=== PATIENT | male | born 1975 | race Two or more races ===

== ENCOUNTER 2021-06-14 21:23 | Emergency (ER) | payer SELFPAY ==
[~2021-06-14] VITALS: Ht 160 cm; Wt 77.1 kg
[2021-06-14 21:33] VITALS: BP 143/104
== END 2021-06-15 03:04 | disposition left against medical advice (07) ==
LOC: ER 21:23
DX: R51.9 Headache, unspecified (principal); I10 Essential (primary) hypertension; Z53.21 Procedure and treatment not carried out due to patient leaving prior to being seen by health care provider

== ENCOUNTER 2021-06-16 16:27 | Inpatient (IN) | payer OTHER ==
[~2021-06-16] VITALS: Ht 160 cm; Wt 94.6 kg
[2021-06-16] MEDS ORDERED: CHOLECALCIFEROL (VITD3) 2,000 UNIT CAP/TAB PO ONE (18:30)
[2021-06-16] MEDS ORDERED: ZINC SULFATE 220mg CAP or TAB PO ONE (18:30)
[2021-06-16] MEDS ORDERED: methylPREDNISolone SOD SUCC 125 MG/2 ML VL IV ONE (18:30)
[2021-06-16] MEDS ORDERED: ASCORBIC ACID 500 MG TAB PO ONE (18:30)
[2021-06-16] MEDS ORDERED: AZITHROMYCIN 500MG/ 250ML 250 ML IV ONE (18:30)
[2021-06-16 19:25] LABS: Basophils # (auto) 0 10 ^3/uL (0-0.2); Basophils % (auto) 0.3 % (0.0-2.0); Eosinophils # (auto) 0 10 ^3/uL (0-0.8); Lymphocytes # (auto) 0.5 10 ^3/uL (0.4-5.4); Mean Corpuscular Hemoglobin 26.9 pg (28.0-32.0); Monocytes # (auto) 0.3 10 ^3/uL (0-1.3); Neutrophils # (auto) 6.8 10 ^3/uL (1.6-8.6); Nucleated Red Blood Cells % 0.1 %
[2021-06-16 19:26] LABS: Hematocrit 54.5 % (41.0-53.0); Hemoglobin 17.7 g/dL (13.5-17.5); Lymphocytes % (auto) 6.6 % (10.0-50.0); Mean Corpuscular Hgb Conc. 32.4 g/dL (32.0-36.0); Monocytes % (auto) 4.1 % (0.0-12.0); Red Blood Cells 6.56 10^6/uL (4.5-5.90); Red Cell Distribution Width 13.8 % (11.8-14.3); White Blood Cell 7.7 10^3/uL (4.4-10.8)
[2021-06-16 19:37] LABS: Albumin 3.2 g/dL (3.4-5.0); Calcium 9.1 mg/dL (8.5-10.1); Magnesium 2.7 mg/dL (1.6-2.6); Potassium 4.5 mmol/L (3.5-5.1)
[2021-06-16 19:40] LABS: BUN/Creatinine Ratio 21.9; Bilirubin, Total 0.5 mg/dL (0.2-1.0); Total Protein 8.2 g/dL (6.4-8.2)
[2021-06-16] MEDS ORDERED: NITROGLYCERIN 0.4 MG SL TAB SL PRN (21:15)
[2021-06-16] MEDS ORDERED: REMDESIVIR PER PHARMACY 0 ML IV SCH (21:15)
[2021-06-16] MEDS ORDERED: ONDANSETRON HCL 4 MG/2 ML VIAL IV PRN (21:15)
[2021-06-16] MEDS ORDERED: cloNIDine HCL 0.1 MG TAB PO PRN (21:15)
[2021-06-16] MEDS ORDERED: MORPHINE SULFATE INJECTION 2 MG/ML SYRG IV PRN (21:15)
[2021-06-16] MEDS: ENOXAPARIN SOD 40 MG/0.4 ML SYRINGE SC SCH (22:01)
[2021-06-17 00:42] VITALS: BP 146/98
[2021-06-17 07:15] LABS: Basophils # (auto) 0 10 ^3/uL (0-0.2); Eosinophils # (auto) 0 10 ^3/uL (0-0.8); Hematocrit 50.3 % (41.0-53.0); Hemoglobin 16.5 g/dL (13.5-17.5); Mean Corpuscular Hemoglobin 27.1 pg (28.0-32.0); Mean Corpuscular Hgb Conc. 32.8 g/dL (32.0-36.0); Mean Corpuscular Volume 82.7 fL (80.0-100.0); Nucleated Red Blood Cells % 0.1 %; Red Blood Cells 6.08 10^6/uL (4.5-5.90)
[2021-06-17 07:16] LABS: Basophils % (auto) 0.3 % (0.0-2.0); Lymphocytes # (auto) 0.3 10 ^3/uL (0.4-5.4); Lymphocytes % (auto) 5.9 % (10.0-50.0); Monocytes # (auto) 0.1 10 ^3/uL (0-1.3); Monocytes % (auto) 2.7 % (0.0-12.0); Neutrophils # (auto) 4.8 10 ^3/uL (1.6-8.6); Neutrophils % (auto) 91.1 % (37.0-80.0); Red Cell Distribution Width 13.9 % (11.8-14.3); White Blood Cell 5.3 10^3/uL (4.4-10.8)
[2021-06-17 07:24] LABS: Potassium 4.2 mmol/L (3.5-5.1)
[2021-06-17 07:31] LABS: Albumin 2.7 g/dL (3.4-5.0); BUN/Creatinine Ratio 31.9; Bilirubin, Total 0.3 mg/dL (0.2-1.0); Calcium 8.5 mg/dL (8.5-10.1); Magnesium 2.5 mg/dL (1.6-2.6); Total Protein 7.4 g/dL (6.4-8.2)
[2021-06-17] MEDS: ENOXAPARIN SOD 40 MG/0.4 ML SYRINGE SC SCH ×2 (10:00→21:02)
[2021-06-17] MEDS: DexAMETHasone SOD PHOS 10MG/1ML VIAL INJ IV SCH (10:16)
[2021-06-17] MEDS: ZINC SULFATE 220mg CAP or TAB PO SCH (10:16)
[2021-06-17] MEDS: PANTOPRAZOLE 40 MG TAB PO SCH (10:16)
[2021-06-17] MEDS: ASCORBIC ACID 1,000 MG TAB PO SCH (10:16)
[2021-06-17] MEDS: CHOLECALCIFEROL (VITD3) 2,000 UNIT CAP/TAB PO SCH (10:17)
[2021-06-17] MEDS: LISINOPRIL 20 MG TAB PO SCH (11:27)
[2021-06-17] MEDS: AZITHROMYCIN 500MG/ 250ML 250 ML IV SCH (11:27)
[2021-06-17] MEDS: ALBUTEROL SULF HFA 90MCG INH 200DOSE IN PRN ×2 (11:27→20:48)
[2021-06-17] MEDS ORDERED: FUROSEMIDE 40 MG/4 ML VIAL IV ONE (12:45)
[2021-06-17] MEDS: guaiFENesin-DM 100/10mg/5ml SYR PO PRN ×2 (13:35→21:02)
[2021-06-17] MEDS ORDERED: REMDESIVIR 200 MG in NS 210ml LOADING DOSE ADULT IV ONE (15:00)
[2021-06-17 16:22] VITALS: BP 131/90
[2021-06-17 16:45] VITALS: BP 131/91
[2021-06-17] MEDS ORDERED: LISI40TA11 PO (19:26)
[2021-06-17 22:00] VITALS: BP 141/90
[2021-06-18] MEDS: guaiFENesin-DM 100/10mg/5ml SYR PO PRN ×3 (01:22→23:15)
[2021-06-18 05:00] VITALS: BP 139/89
[2021-06-18] MEDS: ALBUTEROL SULF HFA 90MCG INH 200DOSE IN PRN ×2 (07:09→21:41)
[2021-06-18 07:25] LABS: Albumin 2.4 g/dL (3.4-5.0); Calcium 8.6 mg/dL (8.5-10.1); Potassium 4.6 mmol/L (3.5-5.1)
[2021-06-18 07:29] LABS: BUN/Creatinine Ratio 36.8; Bilirubin, Total 0.3 mg/dL (0.2-1.0); Total Protein 7.1 g/dL (6.4-8.2)
[2021-06-18 09:00] VITALS: BP 138/90
[2021-06-18] MEDS: AZITHROMYCIN 500MG/ 250ML 250 ML IV SCH ×2 (10:00→18:18)
[2021-06-18] MEDS: DexAMETHasone SOD PHOS 10MG/1ML VIAL INJ IV SCH (10:07)
[2021-06-18] MEDS: LISINOPRIL 20 MG TAB PO SCH (10:08)
[2021-06-18] MEDS: ZINC SULFATE 220mg CAP or TAB PO SCH (10:08)
[2021-06-18] MEDS: CHOLECALCIFEROL (VITD3) 2,000 UNIT CAP/TAB PO SCH (10:08)
[2021-06-18] MEDS: PANTOPRAZOLE 40 MG TAB PO SCH (10:08)
[2021-06-18] MEDS: ASCORBIC ACID 1,000 MG TAB PO SCH (10:08)
[2021-06-18] MEDS: FUROSEMIDE 40 MG/4 ML VIAL IV SCH (10:08)
[2021-06-18] MEDS: ENOXAPARIN SOD 40 MG/0.4 ML SYRINGE SC SCH ×2 (10:09→20:57)
[2021-06-18 13:30] VITALS: BP 118/73
[2021-06-18] MEDS ORDERED: IOHEXOL 350 MG/ML 100ML IJ ONE (14:57)
[2021-06-18] MEDS: REMDESIVIR 100mg 100 MG in SODIUM CHL 0.9% 230 ML IV SCH (16:23)
[2021-06-18 16:31] VITALS: BP 120/73
[2021-06-18 22:00] VITALS: BP 125/84
[2021-06-18] MEDS ORDERED: TOCILIZUMAB 400 MG in SODIUM CHL 0.9% 80 ML IV SCH (22:00)
[2021-06-19] VITALS (8 sets, daily range): BP systolic 127–138; BP diastolic 69–94
[2021-06-19] MEDS: guaiFENesin-DM 100/10mg/5ml SYR PO PRN ×2 (03:33→20:56)
[2021-06-19] MEDS: ACETAMINOPHEN 500 MG TAB PO PRN ×2 (03:37→22:39)
[2021-06-19] MEDS: ALBUTEROL SULF HFA 90MCG INH 200DOSE IN PRN ×2 (07:36→19:01)
[2021-06-19 08:01] LABS: Albumin 2.3 g/dL (3.4-5.0); Calcium 7.8 mg/dL (8.5-10.1); Potassium 4.3 mmol/L (3.5-5.1)
[2021-06-19 08:10] LABS: BUN/Creatinine Ratio 54.9; Bilirubin, Total 0.4 mg/dL (0.2-1.0); Total Protein 5.9 g/dL (6.4-8.2)
[2021-06-19] MEDS: FUROSEMIDE 40 MG/4 ML VIAL IV SCH (10:38)
[2021-06-19] MEDS: DexAMETHasone SOD PHOS 10MG/1ML VIAL INJ IV SCH (10:38)
[2021-06-19] MEDS: ASCORBIC ACID 1,000 MG TAB PO SCH (10:39)
[2021-06-19] MEDS: PANTOPRAZOLE 40 MG TAB PO SCH (10:39)
[2021-06-19] MEDS: ZINC SULFATE 220mg CAP or TAB PO SCH (10:39)
[2021-06-19] MEDS: CHOLECALCIFEROL (VITD3) 2,000 UNIT CAP/TAB PO SCH (10:40)
[2021-06-19] MEDS: ENOXAPARIN SOD 40 MG/0.4 ML SYRINGE SC SCH ×2 (10:40→20:55)
[2021-06-19] MEDS: LISINOPRIL 20 MG TAB PO SCH (10:43)
[2021-06-19] MEDS ORDERED: LACTULOSE 20Gm/30ML SOLN PO ONE (11:45)
[2021-06-19] MEDS ORDERED: LACTULOSE 20Gm/30ML SOLN PO PRN (11:45)
[2021-06-19] MEDS ORDERED: CEFTRIAXONE SODIUM 2 GM in D5W 5% 50 ML IV ONE (11:45)
[2021-06-19] MEDS: CEFTRIAXONE SODIUM 2 GM in D5W 5% 50 ML IV ONE ×2 (14:53→16:45)
[2021-06-19] MEDS: REMDESIVIR 100mg 100 MG in SODIUM CHL 0.9% 230 ML IV SCH (15:10)
[2021-06-20] MEDS: guaiFENesin-DM 100/10mg/5ml SYR PO PRN ×2 (03:13→18:20)
[2021-06-20 05:19] VITALS: BP 113/75
[2021-06-20] MEDS: ALBUTEROL SULF HFA 90MCG INH 200DOSE IN PRN ×2 (07:19→23:07)
[2021-06-20 07:32] LABS: Basophils # (auto) 0 10 ^3/uL (0-0.2); Basophils % (auto) 0.3 % (0.0-2.0); Eosinophils # (auto) 0 10 ^3/uL (0-0.8); Lymphocytes % (auto) 5.4 % (10.0-50.0); Monocytes # (auto) 0.6 10 ^3/uL (0-1.3); Neutrophils # (auto) 7.2 10 ^3/uL (1.6-8.6); Nucleated Red Blood Cells % 0.1 %; Red Blood Cells 5.86 10^6/uL (4.5-5.90); White Blood Cell 8.3 10^3/uL (4.4-10.8)
[2021-06-20 07:35] LABS: Hematocrit 47.5 % (41.0-53.0); Hemoglobin 15.8 g/dL (13.5-17.5); Lymphocytes # (auto) 0.4 10 ^3/uL (0.4-5.4); Mean Corpuscular Hemoglobin 26.9 pg (28.0-32.0); Mean Corpuscular Hgb Conc. 33.3 g/dL (32.0-36.0); Mean Corpuscular Volume 80.9 fL (80.0-100.0); Monocytes % (auto) 7.4 % (0.0-12.0); Neutrophils % (auto) 86.9 % (37.0-80.0); Red Cell Distribution Width 13.4 % (11.8-14.3)
[2021-06-20 07:55] LABS: Albumin 2.3 g/dL (3.4-5.0); BUN/Creatinine Ratio 42.6; Calcium 7.9 mg/dL (8.5-10.1); Potassium 4.5 mmol/L (3.5-5.1)
[2021-06-20 08:03] LABS: Bilirubin, Total 0.4 mg/dL (0.2-1.0); CRP High Sensitivity 1.28 mg/dL (< 0.3); Total Protein 5.9 g/dL (6.4-8.2)
[2021-06-20 09:00] VITALS: BP 134/83
[2021-06-20] MEDS ORDERED: CEFTRIAXONE SODIUM 2 GM in D5W 5% 50 ML IV SCH (09:00)
[2021-06-20] MEDS ORDERED: CEFTRIAXONE SODIUM 1 GM in D5W 5% 50 ML IV SCH (09:00)
[2021-06-20] MEDS: AZITHROMYCIN 500MG/ 250ML 250 ML IV SCH (09:47)
[2021-06-20] MEDS: DexAMETHasone SOD PHOS 10MG/1ML VIAL INJ IV SCH (09:48)
[2021-06-20] MEDS: LISINOPRIL 20 MG TAB PO SCH (09:48)
[2021-06-20] MEDS: FUROSEMIDE 40 MG/4 ML VIAL IV SCH (09:48)
[2021-06-20] MEDS: PANTOPRAZOLE 40 MG TAB PO SCH (09:49)
[2021-06-20] MEDS: ENOXAPARIN SOD 40 MG/0.4 ML SYRINGE SC SCH ×2 (09:49→21:34)
[2021-06-20] MEDS: CHOLECALCIFEROL (VITD3) 2,000 UNIT CAP/TAB PO SCH (09:49)
[2021-06-20] MEDS: ZINC SULFATE 220mg CAP or TAB PO SCH (09:49)
[2021-06-20] MEDS: ASCORBIC ACID 1,000 MG TAB PO SCH (09:49)
[2021-06-20] MEDS: CEFTRIAXONE SODIUM 2 GM in D5W 5% 50 ML IV SCH (09:52)
[2021-06-20] MEDS: IVERMECTIN 3 MG TAB PO SCH (11:43)
[2021-06-20 13:00] VITALS: BP 109/66
[2021-06-20] MEDS: REMDESIVIR 100mg 100 MG in SODIUM CHL 0.9% 230 ML IV SCH (14:51)
[2021-06-20 16:41] VITALS: BP 133/90
[2021-06-20 22:09] VITALS: BP 115/73
[2021-06-21 06:12] VITALS: BP 129/92
[2021-06-21 06:59] LABS: Albumin 2.5 g/dL (3.4-5.0); Calcium 8.2 mg/dL (8.5-10.1); Potassium 4.3 mmol/L (3.5-5.1)
[2021-06-21 07:23] LABS: BUN/Creatinine Ratio 35.4; Bilirubin, Total 0.4 mg/dL (0.2-1.0); Total Protein 6.1 g/dL (6.4-8.2)
[2021-06-21 08:43] VITALS: BP 97/59
[2021-06-21] MEDS: DexAMETHasone SOD PHOS 10MG/1ML VIAL INJ IV SCH (08:52)
[2021-06-21] MEDS: ENOXAPARIN SOD 40 MG/0.4 ML SYRINGE SC SCH ×2 (08:53→21:07)
[2021-06-21] MEDS: CHOLECALCIFEROL (VITD3) 2,000 UNIT CAP/TAB PO SCH (08:54)
[2021-06-21] MEDS: IVERMECTIN 3 MG TAB PO SCH (08:54)
[2021-06-21] MEDS: PANTOPRAZOLE 40 MG TAB PO SCH (08:54)
[2021-06-21] MEDS: ZINC SULFATE 220mg CAP or TAB PO SCH (08:54)
[2021-06-21] MEDS: ASCORBIC ACID 1,000 MG TAB PO SCH (08:54)
[2021-06-21] MEDS: LISINOPRIL 20 MG TAB PO SCH (09:04)
[2021-06-21] MEDS: FUROSEMIDE 40 MG/4 ML VIAL IV SCH (09:04)
[2021-06-21] MEDS: CEFTRIAXONE SODIUM 2 GM in D5W 5% 50 ML IV SCH (09:21)
[2021-06-21] MEDS: ALBUTEROL SULF HFA 90MCG INH 200DOSE IN PRN ×2 (09:56→21:01)
[2021-06-21 13:00] VITALS: BP 111/82
[2021-06-21] MEDS: REMDESIVIR 100mg 100 MG in SODIUM CHL 0.9% 230 ML IV SCH (15:31)
[2021-06-21 16:47] VITALS: BP 126/79
[2021-06-21 22:00] VITALS: BP 132/88
[2021-06-22 05:00] VITALS: BP 131/87
[2021-06-22 06:56] LABS: Potassium 4.4 mmol/L (3.5-5.1)
[2021-06-22 07:01] LABS: BUN/Creatinine Ratio 43.6; Calcium 8.3 mg/dL (8.5-10.1)
[2021-06-22 08:00] VITALS: BP 130/80
[2021-06-22] MEDS: FUROSEMIDE 40 MG/4 ML VIAL IV SCH (09:07)
[2021-06-22] MEDS: DexAMETHasone SOD PHOS 10MG/1ML VIAL INJ IV SCH (09:07)
[2021-06-22] MEDS: ZINC SULFATE 220mg CAP or TAB PO SCH (09:08)
[2021-06-22] MEDS: CEFTRIAXONE SODIUM 2 GM in D5W 5% 50 ML IV SCH (09:08)
[2021-06-22] MEDS: PANTOPRAZOLE 40 MG TAB PO SCH (09:08)
[2021-06-22] MEDS: IVERMECTIN 3 MG TAB PO SCH (09:09)
[2021-06-22] MEDS: CHOLECALCIFEROL (VITD3) 2,000 UNIT CAP/TAB PO SCH (09:09)
[2021-06-22] MEDS: LISINOPRIL 20 MG TAB PO SCH (09:09)
[2021-06-22] MEDS: ASCORBIC ACID 1,000 MG TAB PO SCH (09:09)
[2021-06-22] MEDS: ENOXAPARIN SOD 40 MG/0.4 ML SYRINGE SC SCH ×2 (09:10→21:28)
[2021-06-22 09:14] VITALS: BP 130/80
[2021-06-22 13:00] VITALS: BP 143/81
[2021-06-22] MEDS: ALBUTEROL SULF HFA 90MCG INH 200DOSE IN PRN ×2 (14:58→21:57)
[2021-06-22 17:00] VITALS: BP 122/88
[2021-06-22 22:00] VITALS: BP 118/75
[2021-06-23] VITALS (7 sets, daily range): BP systolic 111–131; BP diastolic 61–75
[2021-06-23] MEDS: ACETAMINOPHEN 500 MG TAB PO PRN (03:40)
[2021-06-23] MEDS: ALBUTEROL SULF HFA 90MCG INH 200DOSE IN PRN ×2 (06:48→19:06)
[2021-06-23] MEDS: DexAMETHasone SOD PHOS 10MG/1ML VIAL INJ IV SCH (08:18)
[2021-06-23] MEDS: CEFTRIAXONE SODIUM 2 GM in D5W 5% 50 ML IV SCH (08:18)
[2021-06-23] MEDS: PANTOPRAZOLE 40 MG TAB PO SCH (08:19)
[2021-06-23] MEDS: ZINC SULFATE 220mg CAP or TAB PO SCH (08:19)
[2021-06-23] MEDS: IVERMECTIN 3 MG TAB PO SCH (08:19)
[2021-06-23] MEDS: ASCORBIC ACID 1,000 MG TAB PO SCH (08:20)
[2021-06-23] MEDS: ENOXAPARIN SOD 40 MG/0.4 ML SYRINGE SC SCH ×2 (08:20→21:19)
[2021-06-23] MEDS: CHOLECALCIFEROL (VITD3) 2,000 UNIT CAP/TAB PO SCH (08:20)
[2021-06-23] MEDS: FUROSEMIDE 40 MG/4 ML VIAL IV SCH (08:25)
[2021-06-23] MEDS: LISINOPRIL 20 MG TAB PO SCH (08:25)
[2021-06-23] MEDS: guaiFENesin-DM 100/10mg/5ml SYR PO PRN (11:11)
[2021-06-24] MEDS: TEMAZEPAM 15 MG CAP PO PRN ×2 (01:09→21:57)
[2021-06-24 05:00] VITALS: BP 108/71
[2021-06-24] MEDS: ALBUTEROL SULF HFA 90MCG INH 200DOSE IN PRN ×2 (06:06→19:42)
[2021-06-24 07:01] LABS: Basophils # (auto) 0 10 ^3/uL (0-0.2); Basophils % (auto) 0.2 % (0.0-2.0); Eosinophils # (auto) 0 10 ^3/uL (0-0.8); Lymphocytes # (auto) 0.3 10 ^3/uL (0.4-5.4); Mean Corpuscular Hgb Conc. 33.3 g/dL (32.0-36.0); Monocytes # (auto) 0.5 10 ^3/uL (0-1.3)
[2021-06-24 07:06] LABS: Eosinophils % (auto) 0.1 % (0.0-7.0); Hematocrit 48.5 % (41.0-53.0); Hemoglobin 16.2 g/dL (13.5-17.5); Lymphocytes % (auto) 1.9 % (10.0-50.0); Mean Corpuscular Hemoglobin 27.3 pg (28.0-32.0); Mean Corpuscular Volume 81.8 fL (80.0-100.0); Monocytes % (auto) 3.3 % (0.0-12.0); Neutrophils # (auto) 15.3 10 ^3/uL (1.6-8.6); Neutrophils % (auto) 94.5 % (37.0-80.0); Red Blood Cells 5.93 10^6/uL (4.5-5.90); Red Cell Distribution Width 13.4 % (11.8-14.3); White Blood Cell 16.2 10^3/uL (4.4-10.8)
[2021-06-24 07:13] LABS: Albumin 2.3 g/dL (3.4-5.0); Calcium 8.6 mg/dL (8.5-10.1); Potassium 5.1 mmol/L (3.5-5.1)
[2021-06-24 07:24] LABS: Bilirubin, Total 0.5 mg/dL (0.2-1.0); CRP High Sensitivity 2.79 mg/dL (< 0.3); Total Protein 6.2 g/dL (6.4-8.2)
[2021-06-24] MEDS: DexAMETHasone SOD PHOS 10MG/1ML VIAL INJ IV SCH (08:23)
[2021-06-24] MEDS: FUROSEMIDE 40 MG/4 ML VIAL IV SCH (08:25)
[2021-06-24] MEDS: PANTOPRAZOLE 40 MG TAB PO SCH (08:25)
[2021-06-24] MEDS: ZINC SULFATE 220mg CAP or TAB PO SCH (08:25)
[2021-06-24] MEDS: IVERMECTIN 3 MG TAB PO SCH (08:26)
[2021-06-24] MEDS: CHOLECALCIFEROL (VITD3) 2,000 UNIT CAP/TAB PO SCH (08:26)
[2021-06-24] MEDS: ASCORBIC ACID 1,000 MG TAB PO SCH (08:26)
[2021-06-24] MEDS: ENOXAPARIN SOD 40 MG/0.4 ML SYRINGE SC SCH ×2 (08:28→20:03)
[2021-06-24] MEDS: LISINOPRIL 20 MG TAB PO SCH (08:29)
[2021-06-24] MEDS: CEFTRIAXONE SODIUM 2 GM in D5W 5% 50 ML IV SCH (08:38)
[2021-06-24 09:00] VITALS: BP 117/64
[2021-06-24 13:24] VITALS: BP 133/74
[2021-06-24 17:00] VITALS: BP 122/77
[2021-06-24] MEDS: guaiFENesin-DM 100/10mg/5ml SYR PO PRN (20:03)
[2021-06-24 22:00] VITALS: BP 111/60
[2021-06-25] MEDS: guaiFENesin-DM 100/10mg/5ml SYR PO PRN ×2 (00:07→20:13)
[2021-06-25 05:00] VITALS: BP 137/71
[2021-06-25] MEDS: ALBUTEROL SULF HFA 90MCG INH 200DOSE IN PRN (06:52)
[2021-06-25] MEDS: DexAMETHasone SOD PHOS 10MG/1ML VIAL INJ IV SCH (07:52)
[2021-06-25] MEDS: IVERMECTIN 3 MG TAB PO SCH (07:53)
[2021-06-25] MEDS: CEFTRIAXONE SODIUM 2 GM in D5W 5% 50 ML IV SCH (07:53)
[2021-06-25] MEDS: FUROSEMIDE 40 MG/4 ML VIAL IV SCH (07:53)
[2021-06-25] MEDS: ZINC SULFATE 220mg CAP or TAB PO SCH (07:53)
[2021-06-25] MEDS: ASCORBIC ACID 1,000 MG TAB PO SCH (07:54)
[2021-06-25] MEDS: CHOLECALCIFEROL (VITD3) 2,000 UNIT CAP/TAB PO SCH (07:54)
[2021-06-25] MEDS: ENOXAPARIN SOD 40 MG/0.4 ML SYRINGE SC SCH ×2 (07:55→20:13)
[2021-06-25] MEDS: LISINOPRIL 20 MG TAB PO SCH (07:55)
[2021-06-25] MEDS: PANTOPRAZOLE 40 MG TAB PO SCH (07:56)
[2021-06-25 09:00] VITALS: BP 124/77
[2021-06-25 12:39] VITALS: BP 110/69
[2021-06-25 17:00] VITALS: BP 112/66
[2021-06-25] MEDS: TEMAZEPAM 15 MG CAP PO PRN (21:25)
[2021-06-25 22:00] VITALS: BP 121/74
[2021-06-26] MEDS: guaiFENesin-DM 100/10mg/5ml SYR PO PRN ×2 (01:07→10:36)
[2021-06-26 05:00] VITALS: BP 120/85
[2021-06-26 06:26] LABS: BUN/Creatinine Ratio 39.7; Calcium 8.8 mg/dL (8.5-10.1); Potassium 5.2 mmol/L (3.5-5.1)
[2021-06-26 06:56] LABS: Basophils # (auto) 0 10 ^3/uL (0-0.2); Eosinophils # (auto) 0 10 ^3/uL (0-0.8); Eosinophils % (auto) 0.2 % (0.0-7.0); Lymphocytes # (auto) 0.3 10 ^3/uL (0.4-5.4); Mean Corpuscular Volume 81.5 fL (80.0-100.0); Monocytes # (auto) 0.4 10 ^3/uL (0-1.3)
[2021-06-26 06:59] LABS: Basophils % (auto) 0.1 % (0.0-2.0); Hematocrit 50.2 % (41.0-53.0); Hemoglobin 16.5 g/dL (13.5-17.5); Mean Corpuscular Hemoglobin 26.7 pg (28.0-32.0); Mean Corpuscular Hgb Conc. 32.8 g/dL (32.0-36.0); Monocytes % (auto) 2.4 % (0.0-12.0); Neutrophils # (auto) 15.8 10 ^3/uL (1.6-8.6); Neutrophils % (auto) 95.3 % (37.0-80.0); Red Blood Cells 6.16 10^6/uL (4.5-5.90); Red Cell Distribution Width 13.6 % (11.8-14.3); White Blood Cell 16.6 10^3/uL (4.4-10.8)
[2021-06-26 09:00] VITALS: BP 121/74
[2021-06-26] MEDS: CHOLECALCIFEROL (VITD3) 2,000 UNIT CAP/TAB PO SCH (09:05)
[2021-06-26] MEDS: PANTOPRAZOLE 40 MG TAB PO SCH (09:06)
[2021-06-26] MEDS: LISINOPRIL 20 MG TAB PO SCH (09:06)
[2021-06-26] MEDS: IVERMECTIN 3 MG TAB PO SCH (09:06)
[2021-06-26] MEDS: ASCORBIC ACID 1,000 MG TAB PO SCH (09:06)
[2021-06-26] MEDS: ZINC SULFATE 220mg CAP or TAB PO SCH (09:06)
[2021-06-26] MEDS: FUROSEMIDE 40 MG/4 ML VIAL IV SCH (09:07)
[2021-06-26] MEDS: ENOXAPARIN SOD 40 MG/0.4 ML SYRINGE SC SCH ×2 (09:07→21:53)
[2021-06-26] MEDS: DexAMETHasone SOD PHOS 10MG/1ML VIAL INJ IV SCH (09:07)
[2021-06-26] MEDS: CEFTRIAXONE SODIUM 2 GM in D5W 5% 50 ML IV SCH (10:35)
[2021-06-26 13:00] VITALS: BP 109/62
[2021-06-26 17:00] VITALS: BP 117/66
[2021-06-26 22:00] VITALS: BP 105/65
[2021-06-27] MEDS: TEMAZEPAM 15 MG CAP PO PRN ×2 (01:12→01:25)
[2021-06-27] MEDS: guaiFENesin-DM 100/10mg/5ml SYR PO PRN (01:26)
[2021-06-27 05:00] VITALS: BP 115/72
[2021-06-27] MEDS: ALBUTEROL SULF HFA 90MCG INH 200DOSE IN PRN ×2 (06:14→21:29)
[2021-06-27 08:59] LABS: Basophils # (auto) 0.1 10 ^3/uL (0-0.2); Eosinophils # (auto) 0.2 10 ^3/uL (0-0.8); Lymphocytes # (auto) 0.4 10 ^3/uL (0.4-5.4)
[2021-06-27 09:00] VITALS: BP 105/69
[2021-06-27 09:00] LABS: Basophils % (auto) 0.3 % (0.0-2.0); Hematocrit 50.7 % (41.0-53.0); Hemoglobin 16.7 g/dL (13.5-17.5); Mean Corpuscular Hemoglobin 27.1 pg (28.0-32.0); Mean Corpuscular Hgb Conc. 32.9 g/dL (32.0-36.0); Mean Corpuscular Volume 82.3 fL (80.0-100.0); Monocytes # (auto) 0.5 10 ^3/uL (0-1.3); Monocytes % (auto) 2.5 % (0.0-12.0); Neutrophils # (auto) 17.8 10 ^3/uL (1.6-8.6); Neutrophils % (auto) 94.2 % (37.0-80.0); Nucleated Red Blood Cells % 0.1 %; Red Blood Cells 6.17 10^6/uL (4.5-5.90); Red Cell Distribution Width 13.5 % (11.8-14.3); White Blood Cell 18.8 10^3/uL (4.4-10.8)
[2021-06-27 09:12] LABS: BUN/Creatinine Ratio 45.8; Calcium 8.8 mg/dL (8.5-10.1)
[2021-06-27 09:37] LABS: Potassium 5.7 mmol/L (3.5-5.1)
[2021-06-27] MEDS: CEFTRIAXONE SODIUM 2 GM in D5W 5% 50 ML IV SCH (11:40)
[2021-06-27] MEDS: ZINC SULFATE 220mg CAP or TAB PO SCH (11:40)
[2021-06-27] MEDS: CHOLECALCIFEROL (VITD3) 2,000 UNIT CAP/TAB PO SCH (11:41)
[2021-06-27] MEDS: ENOXAPARIN SOD 40 MG/0.4 ML SYRINGE SC SCH ×2 (11:41→21:29)
[2021-06-27] MEDS: ASCORBIC ACID 1,000 MG TAB PO SCH (11:41)
[2021-06-27] MEDS: PANTOPRAZOLE 40 MG TAB PO SCH (11:41)
[2021-06-27 12:42] VITALS: BP 101/61
[2021-06-27] MEDS ORDERED: InsuLIN REG 1unit/0.01ml Soln (100units/ml) IV ONE (13:30)
[2021-06-27] MEDS ORDERED: DEXTROSE (50%) 50ML SYRG IV ONE (13:30)
[2021-06-27] MEDS ORDERED: ALBUTEROL SULF 2.5 MG/0.5ML(0.5%) NEB SOLN NEB ONE (13:30)
[2021-06-27] MEDS: SODIUM ZIRCONIUM CYCL 10 GM PAK PO SCH ×2 (14:00→21:28)
[2021-06-27] MEDS: TOCILIZUMAB 400 MG in SODIUM CHL 0.9% 80 ML IV SCH (16:40)
[2021-06-27 17:00] VITALS: BP 106/67
[2021-06-27 22:00] VITALS: BP 107/60
[2021-06-28] VITALS (30 sets, daily range): BP systolic 70–197; BP diastolic 40–128
[2021-06-28] MEDS: TEMAZEPAM 15 MG CAP PO PRN (01:24)
[2021-06-28] MEDS: guaiFENesin-DM 100/10mg/5ml SYR PO PRN (01:24)
[2021-06-28 01:59] LABS: Urine Bacteria NONE SEEN /hpf (None Seen); Urine Blood Negative /uL (Negative); Urine Hyaline Cast FEW /lpf (0 - 2); Urine Mucus FEW (None Seen); Urine Specific Gravity 1.027 (1.001-1.035); Urine WBC 46 /hpf (0 - 3)
[2021-06-28 05:58] LABS: Basophils # (auto) 0 10 ^3/uL (0-0.2); Basophils % (auto) 0.1 % (0.0-2.0); Eosinophils # (auto) 0.5 10 ^3/uL (0-0.8); Hemoglobin 16.5 g/dL (13.5-17.5); Lymphocytes # (auto) 0.5 10 ^3/uL (0.4-5.4); Monocytes # (auto) 0.3 10 ^3/uL (0-1.3); Neutrophils # (auto) 10.9 10 ^3/uL (1.6-8.6); Red Blood Cells 6.17 10^6/uL (4.5-5.90)
[2021-06-28 06:04] LABS: Eosinophils % (auto) 3.8 % (0.0-7.0); Lymphocytes % (auto) 4.2 % (10.0-50.0); Mean Corpuscular Hemoglobin 26.8 pg (28.0-32.0); Mean Corpuscular Volume 81.1 fL (80.0-100.0); Monocytes % (auto) 2.1 % (0.0-12.0); Neutrophils % (auto) 89.8 % (37.0-80.0); Nucleated Red Blood Cells % 0.1 %; Red Cell Distribution Width 13.6 % (11.8-14.3); White Blood Cell 12.1 10^3/uL (4.4-10.8)
[2021-06-28 06:06] LABS: BUN/Creatinine Ratio 39.4; Calcium 8.4 mg/dL (8.5-10.1); Potassium 4.4 mmol/L (3.5-5.1)
[2021-06-28] MEDS: SODIUM ZIRCONIUM CYCL 10 GM PAK PO SCH (06:24)
[2021-06-28] MEDS: PANTOPRAZOLE 40 MG TAB PO SCH (08:37)
[2021-06-28] MEDS: CHOLECALCIFEROL (VITD3) 2,000 UNIT CAP/TAB PO SCH (08:37)
[2021-06-28] MEDS: ASCORBIC ACID 1,000 MG TAB PO SCH (08:37)
[2021-06-28] MEDS: ZINC SULFATE 220mg CAP or TAB PO SCH (08:37)
[2021-06-28] MEDS: ENOXAPARIN SOD 40 MG/0.4 ML SYRINGE SC SCH (08:38)
[2021-06-28] MEDS: TOCILIZUMAB 400 MG in SODIUM CHL 0.9% 80 ML IV SCH (10:59)
[2021-06-28] MEDS ORDERED: FUROSEMIDE 20 MG/2 ML VIAL IV ONE (11:00)
[2021-06-28] MEDS ORDERED: DexAMETHasone SOD PHOS 4 MG/1ML SDV INJ IV ONE (12:30)
[2021-06-28] MEDS ORDERED: ENOXAPARIN SOD 80 MG/0.8ML SYRINGE SC SCH (15:00)
[2021-06-28] MEDS ORDERED: ENOXAPARIN SOD 40 MG/0.4 ML SYRINGE SC ONE (15:15)
[2021-06-28] MEDS: REMDESIVIR 100mg 100 MG in SODIUM CHL 0.9% 230 ML IV SCH (16:09)
[2021-06-28] MEDS: PIPERACILLIN-TAZOB 3.375GM 100 ML IV SCH (18:07)
[2021-06-28] MEDS ORDERED: SUCCINYLCHOLINE CHLORIDE 20 MG/ML 10ML VIAL IV ONE (19:30)
[2021-06-28] MEDS ORDERED: ETOMIDATE (2MG/ML) 20ML VIAL IV ONE ×2 (19:30→19:37)
[2021-06-28] MEDS: MIDAZOLAM DRIP 50 mg/50mL 50 ML IV SCH (19:50)
[2021-06-28] MEDS: fentaNYL Drip 2500mCg/250mlNS 250 ML IV SCH (19:50)
[2021-06-28] MEDS ORDERED: PROPOFOL 100 ML IV ONE (20:06)
[2021-06-28] MEDS: PROPOFOL 100 ML IV SCH (20:30)
[2021-06-28] MEDS: NOREPINEPHRINE 8 MG/250ML KIT 250 ML IV SCH (20:35)
[2021-06-28] MEDS ORDERED: ALBUTEROL SULF 2.5 MG/0.5ML(0.5%) NEB SOLN NEB PRN (21:00)
[2021-06-28 22:03] LABS: Basophils # (auto) 0 10 ^3/uL (0-0.2); Basophils % (auto) 0.3 % (0.0-2.0); Eosinophils # (auto) 0 10 ^3/uL (0-0.8); Eosinophils % (auto) 0.1 % (0.0-7.0); Hemoglobin 16.7 g/dL (13.5-17.5); Lymphocytes % (auto) 1.1 % (10.0-50.0); Monocytes # (auto) 0.2 10 ^3/uL (0-1.3); Monocytes % (auto) 1.6 % (0.0-12.0); Neutrophils % (auto) 96.9 % (37.0-80.0); Red Blood Cells 6.33 10^6/uL (4.5-5.90)
[2021-06-28 22:06] LABS: Hematocrit 51.5 % (41.0-53.0); Lymphocytes # (auto) 0.2 10 ^3/uL (0.4-5.4); Mean Corpuscular Hemoglobin 26.5 pg (28.0-32.0); Mean Corpuscular Hgb Conc. 32.5 g/dL (32.0-36.0); Mean Corpuscular Volume 81.4 fL (80.0-100.0); Neutrophils # (auto) 13.9 10 ^3/uL (1.6-8.6); Red Cell Distribution Width 13.6 % (11.8-14.3); White Blood Cell 14.3 10^3/uL (4.4-10.8)
[2021-06-28 22:21] LABS: Calcium 8.3 mg/dL (8.5-10.1); Potassium 5.5 mmol/L (3.5-5.1)
[2021-06-28 22:23] LABS: BUN/Creatinine Ratio 24.8
[2021-06-28 22:34] LABS: Bilirubin, Total 0.5 mg/dL (0.2-1.0); Total Protein 5.8 g/dL (6.4-8.2)
[2021-06-29] VITALS (112 sets, daily range): BP systolic 69–143; BP diastolic 25–79
[2021-06-29] MEDS ORDERED: SODIUM ZIRCONIUM CYCL 10 GM PAK PO ONE
[2021-06-29] MEDS: PIPERACILLIN-TAZOB 3.375GM 100 ML IV SCH ×4 (00:33→17:42)
[2021-06-29] MEDS: ATRACURIUM BESYLATE 1,000 MG in D5W 5% 150 ML IV SCH (03:30)
[2021-06-29] MEDS ORDERED: ATRACURIUM BESYLATE (10 MG/ ML) 10 ML VIAL ONE (03:33)
[2021-06-29] MEDS ORDERED: PHENYLEPHRINE IV 250 ML IV ONE (03:49)
[2021-06-29] MEDS: ENOXAPARIN SOD 80 MG/0.8ML SYRINGE SC SCH ×2 (04:09→13:58)
[2021-06-29] MEDS: fentaNYL Drip 2500mCg/250mlNS 250 ML IV SCH ×2 (05:02→16:54)
[2021-06-29] MEDS: NOREPINEPHRINE 8 MG/250ML KIT 250 ML IV SCH (05:03)
[2021-06-29] MEDS: MIDAZOLAM DRIP 50 mg/50mL 50 ML IV SCH ×4 (05:06→20:28)
[2021-06-29 06:30] LABS: Basophils # (auto) 0 10 ^3/uL (0-0.2); Basophils % (auto) 0.3 % (0.0-2.0); Eosinophils # (auto) 0 10 ^3/uL (0-0.8); Eosinophils % (auto) 0.1 % (0.0-7.0); Hematocrit 51.5 % (41.0-53.0); Hemoglobin 16.4 g/dL (13.5-17.5); Lymphocytes # (auto) 0.7 10 ^3/uL (0.4-5.4); Lymphocytes % (auto) 4.4 % (10.0-50.0); Mean Corpuscular Hemoglobin 26.6 pg (28.0-32.0); Mean Corpuscular Hgb Conc. 31.9 g/dL (32.0-36.0); Mean Corpuscular Volume 83.5 fL (80.0-100.0); Monocytes # (auto) 0.5 10 ^3/uL (0-1.3); Monocytes % (auto) 3.4 % (0.0-12.0); Neutrophils # (auto) 13.8 10 ^3/uL (1.6-8.6); Neutrophils % (auto) 91.8 % (37.0-80.0); Red Blood Cells 6.17 10^6/uL (4.5-5.90); Red Cell Distribution Width 13.8 % (11.8-14.3)
[2021-06-29] MEDS: PROPOFOL 100 ML IV SCH ×5 (06:44→22:07)
[2021-06-29 08:57] LABS: Potassium 4.9 mmol/L (3.5-5.1)
[2021-06-29 08:58] LABS: Bilirubin, Total 0.4 mg/dL (0.2-1.0); Total Protein 6.4 g/dL (6.4-8.2)
[2021-06-29] MEDS: DexAMETHasone SOD PHOS 4 MG/1ML SDV INJ IV SCH (10:26)
[2021-06-29] MEDS: PANTOPRAZOLE 40 MG/10 ML VIAL INJ IV SCH (10:26)
[2021-06-29] MEDS: NOREPINEPHRINE BITARTRATE 16 MG in SODIUM CHL 0.9% 234 ML IV SCH ×2 (10:27→17:56)
[2021-06-29] MEDS ORDERED: FUROSEMIDE 20 MG/2 ML VIAL ONE (10:29)
[2021-06-29] MEDS: FUROSEMIDE 40 MG/4 ML VIAL IV SCH (10:30)
[2021-06-29] MEDS: PHENYLEPHRINE INJ 40 MG in SODIUM CHL 0.9% 246 ML IV SCH (14:25)
[2021-06-29] MEDS: REMDESIVIR 100mg 100 MG in SODIUM CHL 0.9% 230 ML IV SCH (14:31)
[2021-06-29] MEDS: SODIUM CHLORIDE 0.9% 1,000 ML IV SCH (14:32)
[2021-06-30] VITALS (104 sets, daily range): BP systolic 51–184; BP diastolic 20–79
[2021-06-30] MEDS: PIPERACILLIN-TAZOB 3.375GM 100 ML IV SCH ×4 (00:11→18:00)
[2021-06-30] MEDS: SODIUM CHLORIDE 0.9% 1,000 ML IV SCH (00:12)
[2021-06-30] MEDS: PROPOFOL 100 ML IV SCH ×6 (01:39→18:49)
[2021-06-30] MEDS: MIDAZOLAM DRIP 50 mg/50mL 50 ML IV SCH ×6 (02:08→22:00)
[2021-06-30] MEDS: ENOXAPARIN SOD 80 MG/0.8ML SYRINGE SC SCH ×2 (02:50→15:24)
[2021-06-30] MEDS: ATRACURIUM BESYLATE 1,000 MG in D5W 5% 150 ML IV SCH (03:15)
[2021-06-30] MEDS: PHENYLEPHRINE INJ 40 MG in SODIUM CHL 0.9% 246 ML IV SCH (03:25)
[2021-06-30 03:55] LABS: Eosinophils # (auto) 0 10 ^3/uL (0-0.8); Lymphocytes # (auto) 0.4 10 ^3/uL (0.4-5.4); White Blood Cell 19.5 10^3/uL (4.4-10.8)
[2021-06-30 03:57] LABS: Basophils # (auto) 0.1 10 ^3/uL (0-0.2); Basophils % (auto) 0.4 % (0.0-2.0); Hematocrit 47.2 % (41.0-53.0); Hemoglobin 15.2 g/dL (13.5-17.5); Lymphocytes % (auto) 2.1 % (10.0-50.0); Mean Corpuscular Hemoglobin 26.2 pg (28.0-32.0); Mean Corpuscular Hgb Conc. 32.1 g/dL (32.0-36.0); Mean Corpuscular Volume 81.7 fL (80.0-100.0); Monocytes # (auto) 0.9 10 ^3/uL (0-1.3); Monocytes % (auto) 4.4 % (0.0-12.0); Neutrophils # (auto) 18.1 10 ^3/uL (1.6-8.6); Neutrophils % (auto) 93.1 % (37.0-80.0); Red Blood Cells 5.78 10^6/uL (4.5-5.90); Red Cell Distribution Width 13.5 % (11.8-14.3)
[2021-06-30 04:11] LABS: INR 1.18 (0.9-1.15)
[2021-06-30 04:16] LABS: Albumin 1.9 g/dL (3.4-5.0); BUN/Creatinine Ratio 23.6; Calcium 7.7 mg/dL (8.5-10.1); Magnesium 2.6 mg/dL (1.6-2.6); Potassium 4.1 mmol/L (3.5-5.1)
[2021-06-30 04:25] LABS: Bilirubin, Total 0.4 mg/dL (0.2-1.0); CRP High Sensitivity 1.95 mg/dL (< 0.3); Total Protein 5.4 g/dL (6.4-8.2)
[2021-06-30] MEDS: fentaNYL Drip 2500mCg/250mlNS 250 ML IV SCH ×2 (04:49→16:52)
[2021-06-30] MEDS ORDERED: FUROSEMIDE 20 MG/2 ML VIAL ONE (09:28)
[2021-06-30] MEDS: PANTOPRAZOLE 40 MG/10 ML VIAL INJ IV SCH (09:31)
[2021-06-30] MEDS: DexAMETHasone SOD PHOS 4 MG/1ML SDV INJ IV SCH (09:31)
[2021-06-30] MEDS: FUROSEMIDE 40 MG/4 ML VIAL IV SCH (09:32)
[2021-06-30] MEDS ORDERED: SODIUM CHLORIDE 0.9% 1,000 ML IV SCH (11:15)
[2021-06-30] MEDS ORDERED: TPN PER PHARMACY 0 ML IV SCH (11:15)
[2021-06-30 11:33] LABS: Phosphorus 4.5 mg/dL (2.5-4.90); Pre Albumin 22.3 mg/dL (20.0-40.0)
[2021-06-30] MEDS ORDERED: InsuLIN REG 1unit/0.01ml Soln (100units/ml) SC SCH (12:00)
[2021-06-30] MEDS ORDERED: DEXTROSE (50%) 50ML SYRG IV SCH (12:00)
[2021-06-30] MEDS ORDERED: ACCU-CHEK COMFORT CURVE STRIP VI SCH (12:00)
[2021-06-30 13:45] LABS: Urine Bacteria FEW /hpf (None Seen); Urine Blood 2+ /uL (Negative); Urine WBC 21 /hpf (0 - 3)
[2021-06-30] MEDS ORDERED: FUROSEMIDE 20 MG/2 ML VIAL IV SCH (14:20)
[2021-06-30] MEDS: REMDESIVIR 100mg 100 MG in SODIUM CHL 0.9% 230 ML IV SCH (14:46)
[2021-06-30] MEDS ORDERED: TPN PER PHARMACY IV NR ×7 (20:00)
[2021-06-30] MEDS: ACCU-CHEK COMFORT CURVE STRIP VI SCH (23:58)
[2021-07-01] VITALS (101 sets, daily range): BP systolic 82–140; BP diastolic 40–84
[2021-07-01] MEDS ORDERED: DEXTROSE (50%) 50ML SYRG IV SCH
[2021-07-01] MEDS: InsuLIN REG 1unit/0.01ml Soln (100units/ml) SC SCH ×5 (00:04→23:32)
[2021-07-01] MEDS: ENOXAPARIN SOD 80 MG/0.8ML SYRINGE SC SCH ×2 (02:53→15:33)
[2021-07-01] MEDS: fentaNYL Drip 2500mCg/250mlNS 250 ML IV SCH ×2 (04:22→18:27)
[2021-07-01 04:30] LABS: Basophils # (auto) 0 10 ^3/uL (0-0.2); Basophils % (auto) 0.3 % (0.0-2.0); Eosinophils # (auto) 0 10 ^3/uL (0-0.8); Eosinophils % (auto) 0.1 % (0.0-7.0); Hemoglobin 13.3 g/dL (13.5-17.5); Nucleated Red Blood Cells % 0.1 %; Red Blood Cells 5.02 10^6/uL (4.5-5.90); White Blood Cell 16.4 10^3/uL (4.4-10.8)
[2021-07-01 04:33] LABS: Hematocrit 41.6 % (41.0-53.0); Lymphocytes # (auto) 0.4 10 ^3/uL (0.4-5.4); Lymphocytes % (auto) 2.2 % (10.0-50.0); Mean Corpuscular Hemoglobin 26.5 pg (28.0-32.0); Mean Corpuscular Volume 82.8 fL (80.0-100.0); Monocytes # (auto) 1.4 10 ^3/uL (0-1.3); Monocytes % (auto) 8.3 % (0.0-12.0); Neutrophils # (auto) 14.6 10 ^3/uL (1.6-8.6); Neutrophils % (auto) 89.1 % (37.0-80.0); Red Cell Distribution Width 13.6 % (11.8-14.3)
[2021-07-01 04:49] LABS: Potassium 3.9 mmol/L (3.5-5.1)
[2021-07-01 04:53] LABS: Albumin 1.7 g/dL (3.4-5.0); BUN/Creatinine Ratio 24.1; Calcium 7.7 mg/dL (8.5-10.1)
[2021-07-01 05:00] LABS: Bilirubin, Total 0.2 mg/dL (0.2-1.0); Phosphorus 3.1 mg/dL (2.5-4.90); Total Protein 4.7 g/dL (6.4-8.2)
[2021-07-01] MEDS: MIDAZOLAM DRIP 50 mg/50mL 50 ML IV SCH ×3 (05:00→19:55)
[2021-07-01] MEDS: PIPERACILLIN-TAZOB 3.375GM 100 ML IV SCH ×2 (06:09)
[2021-07-01] MEDS: ACCU-CHEK COMFORT CURVE STRIP VI SCH ×4 (06:09→23:31)
[2021-07-01] MEDS: NOREPINEPHRINE BITARTRATE 16 MG in SODIUM CHL 0.9% 234 ML IV SCH (08:45)
[2021-07-01] MEDS: DexAMETHasone SOD PHOS 4 MG/1ML SDV INJ IV SCH (09:40)
[2021-07-01] MEDS: PANTOPRAZOLE 40 MG/10 ML VIAL INJ IV SCH (09:41)
[2021-07-01 13:06] LABS: Cholesterol 156 mg/dL (< 200)
[2021-07-01 13:09] LABS: HDL Cholesterol 34 mg/dL (40-59); LDL Cholesterol 112 mg/dL (< 100); Triglycerides 188 mg/dL (< 150)
[2021-07-01] MEDS: CEFEPIME 1 GM in SODIUM CHL 0.9% 50 ML IV SCH ×2 (14:34→22:05)
[2021-07-01] MEDS: PROPOFOL 100 ML IV SCH (18:28)
[2021-07-01] MEDS ORDERED: TPN PER PHARMACY IV NR ×7 (20:00)
[2021-07-02] VITALS (105 sets, daily range): BP systolic 85–149; BP diastolic 43–78
[2021-07-02] MEDS: MIDAZOLAM DRIP 50 mg/50mL 50 ML IV SCH (01:00)
[2021-07-02] MEDS: ENOXAPARIN SOD 80 MG/0.8ML SYRINGE SC SCH ×3 (03:06→21:49)
[2021-07-02] MEDS: PROPOFOL 100 ML IV SCH ×2 (03:07→13:48)
[2021-07-02] MEDS: fentaNYL Drip 2500mCg/250mlNS 250 ML IV SCH ×2 (03:07→15:34)
[2021-07-02 05:12] LABS: Basophils # (auto) 0 10 ^3/uL (0-0.2); Basophils % (auto) 0.2 % (0.0-2.0); Eosinophils # (auto) 0 10 ^3/uL (0-0.8); Hematocrit 42.4 % (41.0-53.0); Hemoglobin 13.4 g/dL (13.5-17.5); Lymphocytes # (auto) 0.5 10 ^3/uL (0.4-5.4); Mean Corpuscular Hemoglobin 26.2 pg (28.0-32.0); Mean Corpuscular Hgb Conc. 31.6 g/dL (32.0-36.0); Mean Corpuscular Volume 82.8 fL (80.0-100.0); Monocytes # (auto) 1.2 10 ^3/uL (0-1.3); Monocytes % (auto) 6.8 % (0.0-12.0); Neutrophils # (auto) 15.4 10 ^3/uL (1.6-8.6); Red Blood Cells 5.12 10^6/uL (4.5-5.90); White Blood Cell 17.1 10^3/uL (4.4-10.8)
[2021-07-02 05:31] LABS: Potassium 4.7 mmol/L (3.5-5.1)
[2021-07-02] MEDS: ACCU-CHEK COMFORT CURVE STRIP VI SCH ×4 (05:38→23:44)
[2021-07-02] MEDS: InsuLIN REG 1unit/0.01ml Soln (100units/ml) SC SCH ×4 (05:39→23:40)
[2021-07-02 05:42] LABS: Albumin 1.8 g/dL (3.4-5.0); BUN/Creatinine Ratio 42.2; Bilirubin, Total 0.3 mg/dL (0.2-1.0); Calcium 7.9 mg/dL (8.5-10.1); Magnesium 3.4 mg/dL (1.6-2.6); Phosphorus 3.2 mg/dL (2.5-4.90); Total Protein 4.7 g/dL (6.4-8.2)
[2021-07-02] MEDS: NOREPINEPHRINE BITARTRATE 16 MG in SODIUM CHL 0.9% 234 ML IV SCH (08:45)
[2021-07-02] MEDS: DexAMETHasone SOD PHOS 4 MG/1ML SDV INJ IV SCH (09:59)
[2021-07-02] MEDS: PANTOPRAZOLE 40 MG/10 ML VIAL INJ IV SCH (09:59)
[2021-07-02] MEDS: CEFEPIME 1 GM in SODIUM CHL 0.9% 50 ML IV SCH ×2 (10:02→18:18)
[2021-07-02] MEDS ORDERED: FUROSEMIDE 20 MG/2 ML VIAL IV ONE (10:15)
[2021-07-02] MEDS ORDERED: Jevity 1.2 Cal/Fiber 1 Liter GT SCH (12:00)
[2021-07-02] MEDS ORDERED: TPN PER PHARMACY IV NR ×8 (20:00)
[2021-07-03] VITALS (96 sets, daily range): BP systolic 87–155; BP diastolic 41–79
[2021-07-03] MEDS: CEFEPIME 1 GM in SODIUM CHL 0.9% 50 ML IV SCH ×3 (01:54→18:29)
[2021-07-03 04:47] LABS: Hematocrit 43.4 % (41.0-53.0); Mean Corpuscular Hemoglobin 27.3 pg (28.0-32.0); Mean Corpuscular Hgb Conc. 32.4 g/dL (32.0-36.0); Mean Corpuscular Volume 84.3 fL (80.0-100.0); Red Blood Cells 5.15 10^6/uL (4.5-5.90); Red Cell Distribution Width 13.9 % (11.8-14.3); White Blood Cell 15.2 10^3/uL (4.4-10.8)
[2021-07-03 05:09] LABS: Albumin 2.2 g/dL (3.4-5.0); Calcium 8.2 mg/dL (8.5-10.1); Magnesium 3.1 mg/dL (1.6-2.6); Potassium 4.6 mmol/L (3.5-5.1)
[2021-07-03 05:13] LABS: BUN/Creatinine Ratio 48.8
[2021-07-03 05:17] LABS: Bilirubin, Total 0.2 mg/dL (0.2-1.0); Phosphorus 4.5 mg/dL (2.5-4.90); Total Protein 5.4 g/dL (6.4-8.2)
[2021-07-03 05:41] LABS: Basophils % (manual) 0 (0.0-2.0); Blast Cells 0; Eosinophils % (manual) 0 (0-7); Myelocytes % 0; Promyelocytes % 0; Reactive Lymphocytes 0
[2021-07-03] MEDS: InsuLIN REG 1unit/0.01ml Soln (100units/ml) SC SCH ×3 (06:00→18:00)
[2021-07-03] MEDS: ACCU-CHEK COMFORT CURVE STRIP VI SCH ×3 (06:00→18:00)
[2021-07-03 07:24] LABS: Band Neutrophils % (manual) 5; Lymphocytes % (manual) 8 (10.0-50.0); Metamyelocytes % 1; Monocytes % (manual) 2 (0-12)
[2021-07-03] MEDS ORDERED: FUROSEMIDE 20 MG/2 ML VIAL IV SCH (10:00)
[2021-07-03] MEDS: DexAMETHasone SOD PHOS 4 MG/1ML SDV INJ IV SCH (11:01)
[2021-07-03] MEDS: PANTOPRAZOLE 40 MG/10 ML VIAL INJ IV SCH (11:02)
[2021-07-03] MEDS: PROPOFOL 100 ML IV SCH (19:38)
[2021-07-03] MEDS: MIDAZOLAM DRIP 50 mg/50mL 50 ML IV SCH (19:38)
[2021-07-03] MEDS ORDERED: TPN PER PHARMACY IV NR ×7 (20:00)
[2021-07-03] MEDS: ENOXAPARIN SOD 80 MG/0.8ML SYRINGE SC SCH (22:43)
[2021-07-04] VITALS (99 sets, daily range): BP systolic 76–138; BP diastolic 38–77
[2021-07-04] MEDS: ACCU-CHEK COMFORT CURVE STRIP VI SCH ×4 (00:24→17:50)
[2021-07-04] MEDS: InsuLIN REG 1unit/0.01ml Soln (100units/ml) SC SCH ×4 (00:25→17:58)
[2021-07-04] MEDS: NOREPINEPHRINE BITARTRATE 16 MG in SODIUM CHL 0.9% 234 ML IV SCH (01:09)
[2021-07-04] MEDS: fentaNYL Drip 2500mCg/250mlNS 250 ML IV SCH ×3 (01:10→22:40)
[2021-07-04] MEDS: PROPOFOL 100 ML IV SCH ×2 (01:10→22:41)
[2021-07-04] MEDS: MIDAZOLAM DRIP 50 mg/50mL 50 ML IV SCH ×3 (01:11→15:00)
[2021-07-04] MEDS: CEFEPIME 1 GM in SODIUM CHL 0.9% 50 ML IV SCH ×3 (02:00→17:52)
[2021-07-04 05:18] LABS: Hematocrit 43.7 % (41.0-53.0); Hemoglobin 13.7 g/dL (13.5-17.5); Mean Corpuscular Hemoglobin 26.5 pg (28.0-32.0); Mean Corpuscular Hgb Conc. 31.3 g/dL (32.0-36.0); Mean Corpuscular Volume 84.4 fL (80.0-100.0); Red Blood Cells 5.18 10^6/uL (4.5-5.90); Red Cell Distribution Width 14.2 % (11.8-14.3); White Blood Cell 19.8 10^3/uL (4.4-10.8)
[2021-07-04 05:42] LABS: Potassium 4.6 mmol/L (3.5-5.1)
[2021-07-04 05:48] LABS: Albumin 2.1 g/dL (3.4-5.0); BUN/Creatinine Ratio 63.8; Magnesium 3.1 mg/dL (1.6-2.6)
[2021-07-04 05:54] LABS: Bilirubin, Total 0.2 mg/dL (0.2-1.0); Phosphorus 4.8 mg/dL (2.5-4.90); Total Protein 5.4 g/dL (6.4-8.2)
[2021-07-04 06:26] LABS: Basophils % (manual) 0 (0.0-2.0); Blast Cells 0; Eosinophils % (manual) 0 (0-7); Metamyelocytes % 0; Promyelocytes % 0; Reactive Lymphocytes 0
[2021-07-04 07:10] LABS: Band Neutrophils % (manual) 12; Lymphocytes % (manual) 2 (10.0-50.0); Monocytes % (manual) 2 (0-12); Myelocytes % 5
[2021-07-04] MEDS: PANTOPRAZOLE 40 MG/10 ML VIAL INJ IV SCH (10:05)
[2021-07-04] MEDS: FUROSEMIDE 40 MG/4 ML VIAL IV SCH (10:05)
[2021-07-04] MEDS: ENOXAPARIN SOD 80 MG/0.8ML SYRINGE SC SCH (10:05)
[2021-07-04] MEDS: NOREPINEPHRINE BITARTRATE 32 MG in SODIUM CHL 0.9% 218 ML IV SCH (14:15)
[2021-07-04] MEDS: VASOPRESSIN 50 UNITS in D5W 5% 247.5 ML IV SCH (16:59)
[2021-07-04] MEDS ORDERED: TPN PER PHARMACY IV NR ×8 (20:00)
[2021-07-05] VITALS (101 sets, daily range): BP systolic 85–123; BP diastolic 38–75
[2021-07-05] MEDS: ACCU-CHEK COMFORT CURVE STRIP VI SCH ×3 (00:06→11:30)
[2021-07-05] MEDS: InsuLIN REG 1unit/0.01ml Soln (100units/ml) SC SCH ×3 (00:07→11:31)
[2021-07-05] MEDS: CEFEPIME 1 GM in SODIUM CHL 0.9% 50 ML IV SCH ×3 (02:00→21:31)
[2021-07-05 07:09] LABS: Hematocrit 44.6 % (41.0-53.0); Mean Corpuscular Hemoglobin 27.2 pg (28.0-32.0); Mean Corpuscular Hgb Conc. 31.4 g/dL (32.0-36.0); Mean Corpuscular Volume 86.6 fL (80.0-100.0); Red Blood Cells 5.16 10^6/uL (4.5-5.90); Red Cell Distribution Width 14.9 % (11.8-14.3); White Blood Cell 23.9 10^3/uL (4.4-10.8)
[2021-07-05 07:13] LABS: Basophils % (manual) 0 (0.0-2.0); Blast Cells 0; Promyelocytes % 0; Reactive Lymphocytes 0
[2021-07-05 07:18] LABS: Potassium 5.4 mmol/L (3.5-5.1)
[2021-07-05 07:34] LABS: Band Neutrophils % (manual) 21; Eosinophils % (manual) 1 (0-7); Lymphocytes % (manual) 5 (10.0-50.0); Metamyelocytes % 1; Monocytes % (manual) 2 (0-12); Myelocytes % 2
[2021-07-05 07:43] LABS: Albumin 2.3 g/dL (3.4-5.0); BUN/Creatinine Ratio 40.4; Bilirubin, Total 0.4 mg/dL (0.2-1.0); Calcium 7.7 mg/dL (8.5-10.1); Magnesium 3.5 mg/dL (1.6-2.6); Phosphorus 6.8 mg/dL (2.5-4.90); Total Protein 5.9 g/dL (6.4-8.2)
[2021-07-05] MEDS: NOREPINEPHRINE BITARTRATE 32 MG in SODIUM CHL 0.9% 218 ML IV SCH (08:17)
[2021-07-05] MEDS: fentaNYL Drip 2500mCg/250mlNS 250 ML IV SCH ×2 (08:58→21:33)
[2021-07-05] MEDS: MIDAZOLAM DRIP 50 mg/50mL 50 ML IV SCH ×2 (08:58→21:34)
[2021-07-05] MEDS: FUROSEMIDE 40 MG/4 ML VIAL IV SCH (10:23)
[2021-07-05] MEDS: ENOXAPARIN SOD 80 MG/0.8ML SYRINGE SC SCH (10:23)
[2021-07-05] MEDS: PANTOPRAZOLE 40 MG/10 ML VIAL INJ IV SCH (10:23)
[2021-07-05] MEDS ORDERED: ALBUTEROL SULF 2.5 MG/0.5ML(0.5%) NEB SOLN NEB ONE (10:30)
[2021-07-05] MEDS ORDERED: SODIUM BICARBONATE 8.4% INJ 50ML SYRINGE IV ONE (10:30)
[2021-07-05] MEDS ORDERED: SODIUM ZIRCONIUM CYCL 10 GM PAK PO ONE (10:30)
[2021-07-05] MEDS ORDERED: SODIUM BICARBONATE 8.4 % INJ 50ML VIAL IV ONE ×2 (11:30→23:15)
[2021-07-05] MEDS ORDERED: FUROSEMIDE 40 MG/4 ML VIAL IV ONE (11:45)
[2021-07-05] MEDS: ALBUMIN 25% 100 ML IV SCH ×2 (13:40→20:08)
[2021-07-05] MEDS: SODIUM ZIRCONIUM CYCL 10 GM PAK PO SCH ×2 (14:18→21:31)
[2021-07-05] MEDS: PROPOFOL 100 ML IV SCH ×2 (14:18→21:34)
[2021-07-05] MEDS ORDERED: TPN PER PHARMACY IV NR ×7 (20:00)
[2021-07-05] MEDS: VASOPRESSIN 50 UNITS in D5W 5% 247.5 ML IV SCH (23:38)
[2021-07-06] VITALS (103 sets, daily range): BP systolic 64–130; BP diastolic 18–67
[2021-07-06] MEDS: ALBUMIN 25% 100 ML IV SCH (03:45)
[2021-07-06 04:45] LABS: Hemoglobin 12.2 g/dL (13.5-17.5); White Blood Cell 18.1 10^3/uL (4.4-10.8)
[2021-07-06] MEDS: PHENYLEPHRINE INJ 80 MG in SODIUM CHL 0.9% 242 ML IV SCH (04:46)
[2021-07-06 04:51] LABS: Mean Corpuscular Hemoglobin 27.1 pg (28.0-32.0); Mean Corpuscular Hgb Conc. 31.4 g/dL (32.0-36.0); Mean Corpuscular Volume 86.2 fL (80.0-100.0); Red Blood Cells 4.52 10^6/uL (4.5-5.90); Red Cell Distribution Width 14.5 % (11.8-14.3)
[2021-07-06 05:04] LABS: Basophils % (manual) 0 (0.0-2.0); Blast Cells 0; Eosinophils % (manual) 0 (0-7); Promyelocytes % 0; Reactive Lymphocytes 0
[2021-07-06 05:05] LABS: Calcium 7.3 mg/dL (8.5-10.1); Potassium 5.3 mmol/L (3.5-5.1)
[2021-07-06 05:08] LABS: BUN/Creatinine Ratio 29.7
[2021-07-06] MEDS: SODIUM ZIRCONIUM CYCL 10 GM PAK PO SCH ×3 (05:51→22:00)
[2021-07-06] MEDS: MIDAZOLAM DRIP 50 mg/50mL 50 ML IV SCH ×2 (08:46→19:15)
[2021-07-06] MEDS: VASOPRESSIN 50 UNITS in D5W 5% 247.5 ML IV SCH ×2 (08:47→21:00)
[2021-07-06] MEDS: fentaNYL Drip 2500mCg/250mlNS 250 ML IV SCH ×2 (08:48→21:00)
[2021-07-06] MEDS: CEFEPIME 1 GM in SODIUM CHL 0.9% 50 ML IV SCH (10:00)
[2021-07-06] MEDS: ENOXAPARIN SOD 80 MG/0.8ML SYRINGE SC SCH (10:12)
[2021-07-06] MEDS: FUROSEMIDE 40 MG/4 ML VIAL IV SCH (10:12)
[2021-07-06] MEDS: PANTOPRAZOLE 40 MG/10 ML VIAL INJ IV SCH (10:12)
[2021-07-06 10:34] LABS: Band Neutrophils % (manual) 11; Lymphocytes % (manual) 5 (10.0-50.0); Metamyelocytes % 1; Monocytes % (manual) 3 (0-12); Myelocytes % 1
[2021-07-06] MEDS ORDERED: FUROSEMIDE 100 MG/10ML VIAL IV ONE (11:00)
[2021-07-06] MEDS: FUROSEMIDE INJECTION 100 MG in SODIUM CHL 0.9% 100 ML IV SCH ×2 (11:40→21:00)
[2021-07-06] MEDS: PROPOFOL 100 ML IV SCH (19:38)
[2021-07-06] MEDS ORDERED: SODIUM BICARBONATE 8.4 % INJ 50ML VIAL IV ONE (19:45)
[2021-07-06] MEDS: NOREPINEPHRINE BITARTRATE 32 MG in SODIUM CHL 0.9% 218 ML IV SCH (21:00)
[2021-07-06] MEDS ORDERED: CEFEPIME 1 GM in SODIUM CHL 0.9% 50 ML IV SCH (22:00)
[2021-07-07] VITALS (23 sets, daily range): BP systolic 62–117; BP diastolic 13–95
[2021-07-07] MEDS: PHENYLEPHRINE INJ 80 MG in SODIUM CHL 0.9% 242 ML IV SCH (00:30)
[2021-07-07] MEDS: MIDAZOLAM DRIP 50 mg/50mL 50 ML IV SCH (00:30)
[2021-07-07] MEDS: PROPOFOL 100 ML IV SCH (02:30)
[2021-07-07 04:37] LABS: Hemoglobin 12.1 g/dL (13.5-17.5)
[2021-07-07 04:40] LABS: Mean Corpuscular Hemoglobin 28.3 pg (28.0-32.0); Mean Corpuscular Volume 91.2 fL (80.0-100.0); Red Blood Cells 4.28 10^6/uL (4.5-5.90); Red Cell Distribution Width 15.8 % (11.8-14.3); White Blood Cell 22.4 10^3/uL (4.4-10.8)
[2021-07-07 04:53] LABS: Basophils % (manual) 0 (0.0-2.0); Blast Cells 0; Eosinophils % (manual) 0 (0-7); Promyelocytes % 0; Reactive Lymphocytes 0
[2021-07-07] MEDS: FUROSEMIDE INJECTION 100 MG in SODIUM CHL 0.9% 100 ML IV SCH (05:30)
[2021-07-07 08:07] LABS: Band Neutrophils % (manual) 10; Lymphocytes % (manual) 6 (10.0-50.0); Metamyelocytes % 5; Monocytes % (manual) 6 (0-12); Myelocytes % 1
== END 2021-07-07 06:08 | DRG 870 ==
LOC: ER 16:27 → TELE 21:14 → TELE-EAST 06-17 15:05 → TELE-E-ADS 06-18 18:07 → EAST 06-28 15:28 → ICU WEST 06-28 19:14
PROVIDERS: ADMIT Nurse Practitioner; ATTEND Internal Medicine Pulmonary Disease
PROC: XW033E5 Introduction of Remdesivir Anti-infective into Peripheral Vein, Percutaneous Approach, New Technology Group 5 (ICD-10-PCS; 2021-06-17)
PROC: 5A0935A Assistance with Respiratory Ventilation, Less than 24 Consecutive Hours, High Flow/Velocity Cannula (ICD-10-PCS; 2021-06-18)
PROC: XW033H5 Introduction of Tocilizumab into Peripheral Vein, Percutaneous Approach, New Technology Group 5 (ICD-10-PCS; 2021-06-27)
PROC: 5A1955Z Respiratory Ventilation, Greater than 96 Consecutive Hours (ICD-10-PCS; principal; 2021-06-28)
PROC: 0BH17EZ Insertion of Endotracheal Airway into Trachea, Via Natural or Artificial Opening (ICD-10-PCS; 2021-06-28)
PROC: 5A09357 Assistance with Respiratory Ventilation, Less than 24 Consecutive Hours, Continuous Positive Airway Pressure (ICD-10-PCS; 2021-06-28)
PROC: 02HV33Z Insertion of Infusion Device into Superior Vena Cava, Percutaneous Approach (ICD-10-PCS; 2021-06-29)
PROC: B548ZZA Ultrasonography of Superior Vena Cava, Guidance (ICD-10-PCS; 2021-06-29)
PROC: 05HD33Z Insertion of Infusion Device into Right Cephalic Vein, Percutaneous Approach (ICD-10-PCS; 2021-07-05)
PROC: B54MZZA Ultrasonography of Right Upper Extremity Veins, Guidance (ICD-10-PCS; 2021-07-05)
PROC: 5A12012 Performance of Cardiac Output, Single, Manual (ICD-10-PCS; 2021-07-07)
DX: A41.9 Sepsis, unspecified organism (principal); E43 Unspecified severe protein-calorie malnutrition; J12.82 Pneumonia due to coronavirus disease 2019; J80 Acute respiratory distress syndrome; N17.0 Acute kidney failure with tubular necrosis; R65.21 Severe sepsis with septic shock; U07.1 COVID-19; I21.A1 Myocardial infarction type 2; F84.0 Autistic disorder; Z99.11 Dependence on respirator [ventilator] status; E66.9 Obesity, unspecified; E87.5 Hyperkalemia; E87.6 Hypokalemia; I44.1 Atrioventricular block, second degree; D89.839 Cytokine release syndrome, grade unspecified; I10 Essential (primary) hypertension; I16.0 Hypertensive urgency; Z80.9 Family history of malignant neoplasm, unspecified; Z82.49 Family history of ischemic heart disease and other diseases of the circulatory system; Z68.34 Body mass index [BMI] 34.0-34.9, adult
CPT/HCPCS: 36415; 36600; 71045; 71275; 74018; 76705; 80048; 80053; 80061; 81001; 82040; 82728; 82805; 82962; 83036; 83605; 83615; 83735; 83880; 84100; 84443; 84478; 84484; 85007; 85025; 85027; 85379; 85610; 86141; 87040; 87070; 87081; 87086; 87205; 87426; 92950; 93005; 93306; 93970; 94002; 94003; 94640; 94660; 96365; 96375; 97110; 97163; C9113; G0378; J0330; J0696; J1100; J1815; J2250; J2543; J2704; J7060; J7131; P9047